=== PATIENT | male | born 1955 | race Caucasian/White ===

== ENCOUNTER 2018-09-03 16:05 | Inpatient (IN) | payer MEDICARE ==
[2018-09-03] MEDS ORDERED: Zosyn 3.375GM/100 Ml D5W 3.375 GM/100 ML IVPB IV ONE (16:30)
[2018-09-03] MEDS ORDERED: Zofran 4 MG/2 ML VIAL IV PRN (16:30)
[2018-09-03] MEDS ORDERED: TYLENOL 325 MG PO PRN (16:31)
[2018-09-03 16:55] LABS: Lactic Acid 1.9 (0.4-2.0)
[2018-09-03] MEDS ORDERED: THIAMINE 200 MG/2 ML IV ONE (17:05)
[2018-09-03] MEDS: Lactated Ringers 1,000 ML IV SCH ×4 (17:06→22:38)
--- NOTE | 2018-09-03 17:15 | XRAY ---
Indication: Pneumonia. Low oxygenation. Comparison: None Portable chest demonstrates right upper lung and lesser degree right base pneumonic infiltrates without consolidation or large effusion. Remaining heart and and left lung unremarkable. Bony thorax intact with mild degenerative changes.
[2018-09-03 17:32] LABS: BASOPHIL % 0.1 % (0.0-0.4); Basophil (Absolute #) 0.02 (0-0.4); Eosinophil % 0.1 % (0.00-5.0); Eosinophil (Absolute #) 0.01 (0-0.5); Granulocyte Absolute (ANC) 15.77 (1.4-6.9); Granulocytes % 82.5 % (36.0-66.0); Hemoglobin 14.9 gm/dl (12.5-18.0); Lymphocyte (Absolute #) 1.52 (1.0-4.6); Mean Cell Volume 98.3 fl (78-100); Mean Corpuscular Hemoglobin 32.5 pg (26-32); Mean Corpuscular Hgb Concent. 33.1 g/dl (32-36); Mean Platelet Volume 9.7 fl (6-9.5); Monocyte (Absolute #) 1.77 (0.0-1.3); Monocytes % 9.3 % (0.0-12.0); Platelet Count 191 K/mm3 (150-450); Red Blood Count 4.58 M/mm3 (4.1-5.6); Red Cell Distribution Width 16.4 % (11.5-14.0); White Blood Count 19.1 K/mm3 (4.0-10.5)
[2018-09-03] MEDS: Nicoderm CQ 21 MG TOP SCH (17:45)
--- NOTE | 2018-09-03 17:46 | PCM.HP ---
History of Present Illness - Chief Complaint Chief Complaint: pneumonia Date: 09/03/18 History of Present Illness: is a 62 year old male. who lives at home and is a heavy smoker starting at age 6. he has had increased productive cough for the last week and this am awoke very weak with right sided chest pains that hurt when he coughs or takes a deep breath and sharp in nature and productive sputum and short of breath not relieved with his inhaler. He was confused and fell twice at home. He refused to go to the ED and came into the office for an acute appointment today with his and daughter. He had to come in a wheelchair and his oxygen saturation on arrival was 70% in obvious distress. This improved with O2 supplementation nc at 6L and ekg showed no evidence of acute ischemia. He had right sided rales and rhonchi and felt febrile. He was sent for direct icu admission after refusal of ems transfer and ED care. He is a heavy drinker but has been drinking less for the last few days due to not feeling as well. He has jerking of his extremities that is worsening chronically and much worse today. - Review of Systems Constitutional: Fever, Chills, Fatigue Eyes: No Symptoms Ears, Nose, & Throat: No Symptoms, Nose Congestion Respiratory: Cough, Short Of Breath, Wheezing Cardiac: Chest Pain, No Edema, No Syncope Abdominal/Gastrointestinal: Nausea, No Abdominal Pain, No Vomiting, No Diarrhea Genitourinary Symptoms: No Dysuria Musculoskeletal: No Back Pain, No Neck Pain Skin: No Rash Neurological: No Dizziness, No Focal Weakness, No Sensory Changes Psychological: No Symptoms Endocrine: No Symptoms Hematologic/Lymphatic: No Symptoms Immunological/Allergic: No Symptoms Additional Findings: Meds: Proair prn; spirivia daily; dulera bid; flexaril 10 mg tid prn; bumetanide 2mg daily; propranolol 40 mg tid for tremor; potassium chloride 10 mEq po tid; Clonazepam 1mg daily; atorvastatin 10 mg daily All: NKDA Medications & Allergies Home Medications: Home Medication List Albuterol Sulfate [Proair Hfa] 2 puff IH Q4HPRN PRN 09/03/18 [History Confirmed 09/03/18] Atorvastatin Calcium [Lipitor] 10 mg PO LUNCH 09/03/18 [History Confirmed ] Bumetanide [Bumex] 2 mg PO LUNCH 09/03/18 [History Confirmed 09/03/18] Clonazepam [Klonopin] 1 mg PO TIDPRN PRN 09/03/18 [History Confirmed 09/03/18] Cyclobenzaprine HCl 10 mg [Cyclobenzaprine 10 MG] 10 mg PO TIDPRN [History Confirmed 09/03/18] Mometasone/Formoterol [Dulera 200 Mcg/5 Mcg Inhaler] 1 puff IH BID 09/03/18 [ History Confirmed 09/03/18] Potassium Chloride 10 Meq Tab* [Klor Con 10 MEQ] 30 meq PO DAILY 09/03/18 [ History Confirmed 09/03/18] Propranolol HCl 40 mg PO TID 09/03/18 [History Confirmed 09/03/18] Tiotropium [place] [Spiriva] 18 mcg IH DAILY 09/03/18 [History Confirmed ] Allergies/Adverse Reactions: Allergies Allergy/AdvReac Type Severity Reaction Status Date / Time No Known Drug Allergies Allergy Unverified 09/03/18 18:02 - Past Medical History Past Medical History: Yes Neurological History: No Pertinent History ENT History: No Pertinent History Cardiac History: High Cholesterol, Hypertension Respiratory History: COPD Endocrine Medical History: No Pertinent History Musculoskelatal History: Degenerative Disk Disease GI Medical History: GERD History: No Pertinent History Pyscho-Social History: No Pertinent History Male Reproductive Disorders: No Pertinent History - Past Surgical History Past Surgical History: Yes Neuro Surgical History: No Pertinent History Cardiac History: No Pertinent History Respiratory Surgery: No Pertinent History GI Surgical History: No Pertinent History Genitourinary Surgical Hx: No Pertinent History Musculskeletal Surgical Hx: Other Male Surgical History: No Pertinent History Other Surgical History: cysts removed. back surgery - Social History Alcohol: Occasionally Drug Use: none - Physical Exam Vital Signs: BP 98/56; HR 120; RR 30 pulse ox 70% on room air improved to 96% on 6L nc O2 General Appearance: moderate distress, alert Neurologic Exam: alert, oriented x 3, cooperative, normal mood/affect, sensation nml, other (myoclonic jerking of the amrs and legs), No motor deficits Eye Exam: PERRL/EOMI, eyes nml inspection, No scleral icterus, No pale conjunctivae Ears, Nose, Throat Exam: pharynx normal, dry mucous membranes Neck Exam: normal inspection, non-tender, supple, full range of motion Respiratory Exam: respiratory distress, prolonged expirations, crackles/rales ( right sided throughout), rhonchi Cardiovascular Exam: normal heart sounds, normal peripheral pulses, tachycardia , No edema Gastrointestinal/Abdomen Exam: soft, normal bowel sounds, No tenderness, No mass Back Exam: normal inspection, normal range of motion, No CVA tenderness, No vertebral tenderness Extremity Exam: normal inspection, normal range of motion, pelvis stable Skin Exam: normal color, warm, dry, No rash Lymphatic Exam: No adenopathy Results - Labs Lab/Micro Results: Lab Results-Last 24 Hours 09/03/18 09/03/18 Range/Units 16:30 16:45 WBC 19.1 H (4.0-10.5) K/mm3 RBC 4.58 (4.1-5.6) M/mm3 Hgb 14.9 (12.5-18.0) gm/dl Hct 45.0 (42-50) % MCV 98.3 (78-100) fl MCH 32.5 H (26-32) pg MCHC 33.1 (32-36) g/dl RDW 16.4 H (11.5-14.0) % Plt Count 191 (150-450) K/mm3 MPV 9.7 H (6-9.5) fl Gran % 82.5 H (36.0-66.0) % Eos # (Auto) 0.01 (0-0.5) Absolute Lymphs (auto) 1.52 (1.0-4.6) Absolute Monos (auto) 1.77 H (0.0-1.3) Lymphocytes % 8.0 L (24.0-44.0) % Monocytes % 9.3 (0.0-12.0) % Eosinophils % 0.1 (0.00-5.0) % Basophils % 0.1 (0.0-0.4) % Absolute Granulocytes 15.77 H (1.4-6.9) Basophils # 0.02 (0-0.4) Lactic Acid 1.9 (0.4-2.0) - Radiology Impressions Radiology Exams & Impressions: Radiology Procedures Category Date Time Status CHEST 1 VIEW (PORTABLE) Stat Exams 09/03/18 16:47 Completed - Other Procedures and Tests Respiratory Therapy 09/03/18 17:31 Oxygen NASAL CANNULA 4 lpm Assessment/Plan (1) Pneumonia Current Visit: Yes Status: Acute Qualifiers: Laterality: right Lung location: upper lobe of lung Assessment & Plan: with sepsis will treat with zosyn he has history of heavy alcohol use will start ciwa protocol with ativan prn 2 L bolus of LR then 125 mL/h blood cultures sputum culture pending with his copd and sepsis with pneumonia will use hydrocortisone 50 mg iv q6h and due duoneb prn currently no real wheezing more right sided rales and rhonchi reassessment after 1 L of LR shows improved blood pressure more alert joking improving peripheral perfusion Code(s): J18.9 - PNEUMONIA, UNSPECIFIED ORGANISM (2) Sepsis Current Visit: Yes Status: Acute (3) COPD (chronic obstructive pulmonary disease) Current Visit: Yes Status: Chronic (4) Tobacco abuse Current Visit: Yes Status: Chronic Code(s): Z72.0 - TOBACCO USE (5) Alcohol consumption heavy Current Visit: Yes Status: Chronic Code(s): Z78.9 - OTHER SPECIFIED HEALTH STATUS (6) Hypomagnesemia Current Visit: Yes Status: Acute Code(s): E83.42 - HYPOMAGNESEMIA
[2018-09-03 17:56] LABS: Appearance CLEAR (CLEAR); Bilirubin NEGATIVE (NEGATIVE); Blood NEGATIVE Ery/ul (0-5); Glucose NEGATIVE (NEGATIVE); Ketones TRACE (NEGATIVE); Leukocyte Esterase NEGATIVE (NEGATIVE); Nitrite NEGATIVE (NEGATIVE); Protein,Urine Dip NEGATIVE (Negative); Specific Gravity 1.015 (1.005-1.025); Urobilinogen NEGATIVE mg/dL (0-1)
[2018-09-03 17:56] LABS: ALBUMIN 3.8 g/dL (3.5-5.0); ALKALINE PHOSPHATASE 76 U/L (38-126); ANION GAP 11.3 MEQ/L (5-15); BLOOD UREA NITROGEN 18 mg/dL (9-20); CHLORIDE 103 mmol/L (98-107); Calcium 8.9 mg/dL (8.4-10.2); Carbon Dioxide 26 mmol/L (22-30); Creatinine 1 1.08 mg/dL (0.66-1.25); Glucose 98 mg/dL (74-106); NT PRO BNP 810 pg/mL (0-900); Potassium 3.6 mmol/L (3.5-5.1); SGOT/AST 21 U/L (17-59); SGPT/ALT 16 U/L (0-50); SODIUM 137 mmol/L (137-145); Total Protein 6.6 g/dL (6.3-8.2)
[2018-09-03] MEDS: solu-CORTEF 100MG IV SCH ×2 (18:08→23:37)
[2018-09-03] MEDS: Ativan 2 MG/1 ML VIAL IV PRN ×2 (18:20→21:48)
[2018-09-03] MEDS ORDERED: Ecotrin 325 MG PO ONE (18:25)
[2018-09-03] MEDS ORDERED: MORPHINE SULFATE 2 MG INJ IV PRN (18:25)
[2018-09-03] MEDS ORDERED: Klonopin 0.5 MG PO PRN (19:15)
[2018-09-03] MEDS: Magnesium 1 Gm / 100 Ml D5W*** 100 ML IV SCH ×2 (19:16→19:47)
[2018-09-03] MEDS ORDERED: LEVOPHED 4 MG/4 ML 4,000 MCG in Dextrose 5%/Water IV Soln. 500 ML 500 ML IV PRN (20:10)
[2018-09-03] MEDS: DUONEB 0.5-3 MG/3 ml Neb IH PRN (21:18)
[2018-09-03] MEDS: Pepcid 20 MG VIAL IV SCH (21:48)
[2018-09-03] MEDS: Zocor 10MG PO SCH (21:48)
[2018-09-03] MEDS: MAG-OX 400 PO SCH (21:48)
[2018-09-03] MEDS ORDERED: solu-CORTEF 250MG ONE (22:57)
[2018-09-03] MEDS: Zosyn 3.375GM/100 Ml D5W 3.375 GM/100 ML IVPB IV SCH (23:37)
[2018-09-04] MEDS: Zosyn 3.375GM/100 Ml D5W 3.375 GM/100 ML IVPB IV SCH ×5 (01:39→23:31)
[2018-09-04 05:31] LABS: Slide Review 1 YES
[2018-09-04 06:08] LABS: ALBUMIN 3.4 g/dL (3.5-5.0); ALKALINE PHOSPHATASE 63 U/L (38-126); ANION GAP 9.2 MEQ/L (5-15); BLOOD UREA NITROGEN 14 mg/dL (9-20); CHLORIDE 105 mmol/L (98-107); Calcium 8.9 mg/dL (8.4-10.2); Carbon Dioxide 32 mmol/L (22-30); Creatinine 1 0.85 mg/dL (0.66-1.25); Glucose 149 mg/dL (74-106); Potassium 4.2 mmol/L (3.5-5.1); SGOT/AST 16 U/L (17-59); SGPT/ALT 13 U/L (0-50); SODIUM 142 mmol/L (137-145); Total Protein 6.3 g/dL (6.3-8.2)
[2018-09-04] MEDS ORDERED: solu-CORTEF 100MG ONE (06:20)
[2018-09-04] MEDS: solu-CORTEF 100MG IV SCH ×4 (06:23→23:28)
[2018-09-04] MEDS ORDERED: Ventolin Hfa MDI IH PRN (07:08)
[2018-09-04] MEDS ORDERED: PROVENTIL COMMON CANISTER IH PRN (07:12)
[2018-09-04] MEDS: DUONEB 0.5-3 MG/3 ml Neb IH PRN ×2 (07:28→18:37)
[2018-09-04] MEDS: Lactated Ringers 1,000 ML IV SCH ×5 (07:38→22:35)
--- NOTE | 2018-09-04 08:25 | PCM.NOTE ---
Date and Time: 09/04/18815 Subjective Assessment: productive persistent coughing but otherwise feeling much better no appetite but no nausea feeling much better some right sided sharp chest pains still has not tried to stand up yet. Objective Exam General Appearance: no apparent distress, alert Neurologic Exam: alert, oriented x 3, cooperative, normal mood/affect, nml cerebellar function, sensation nml, No motor deficits Skin Exam: normal color, warm, dry Eye Exam: PERRL, EOMI, eyes nml inspection Ears, Nose, Throat Exam: normal ENT inspection, pharynx normal, moist mucous membranes Neck Exam: normal inspection, non-tender, supple, full range of motion Respiratory Exam: crackles/rales, rhonchi, wheezing, other (rales much worse on the right expiratory wheezing and rhonchi throughout) Cardiovascular Exam: regular rate/rhythm, normal heart sounds Gastrointestinal/Abdomen Exam: soft, No tenderness, No mass Extremity Exam: normal inspection, normal range of motion Back Exam: normal inspection, normal range of motion, No CVA tenderness, No vertebral tenderness Male Genitalia Exam: deferred Rectal Exam: deferred OBJECTIVE DATA Vital Signs: Vital Signs - 24 hr Temp Pulse Resp BP Pulse Ox 09/04/18 07:55 98.1 F 89 19 131/75 95 09/04/18 07:30 85 22 95 09/04/18 07:00 91 H 22 144/73 93 L 09/04/18 06:00 80 28 H 122/63 95 09/04/18 05:00 80 26 H 134/96 96 09/04/18 04:00 98.7 F 83 28 H 131/74 93 L 09/04/18 03:00 83 25 H 122/68 95 09/04/18 02:00 79 26 H 132/75 94 L 09/04/18 01:00 85 25 H 94/76 93 L 09/04/18 00:01 102 H 09/04/18 00:00 98.9 F 101 H 25 H 125/65 97 09/03/18 23:00 101 H 25 H 143/73 97 09/03/18 21:56 102 H 23 113/58 98 09/03/18 21:29 115 H 18 96 09/03/18 21:00 99.5 F 111 H 27 H 106/53 94 L 09/03/18 20:13 114 H 23 97 09/03/18 20:00 107 H 23 09/03/18 19:54 100.5 F 110 H 25 H 75/59 94 L 09/03/18 17:01 100.9 F 115 H 20 113/68 99 Oxygen-Last 24 hours O2 Percentage 3 Liters = 32% O2 Percentage 3 Liters = 32% O2 Percentage 3 Liters = 32% O2 Percentage 3 Liters = 32% O2 Percentage 3 Liters = 32% O2 Percentage 3 Liters = 32% O2 Percentage 3 Liters = 32% O2 Percentage 3 Liters = 32% O2 Percentage 3 Liters = 32% O2 Percentage 3 Liters = 32% O2 Percentage 3 Liters = 32% O2 Percentage 3 Liters = 32% O2 Percentage 3 Liters = 32% O2 Percentage 4 Liters = 36% Oxygen Flowrate (L/min)-RT 3 Oxygen Flowrate (L/min)-RT 3 Oxygen Flowrate (L/min)-RT 4 Pain Assessment - Last Documented Pain Intensity 4 Pain Scale Used 0-10 Pain Scale Intake and Output: Intake & Output 09/01/18 09/02/18 09/03/18 09/04/18 11:59 11:59 11:59 11:59 Intake Total 4347 Output Total 1625 Balance 2722 Weight 103.7 kg Lab Results: Lab Results-Last 24 Hours 09/03/18 09/03/18 09/03/18 Range/Units 16:30 16:30 16:45 WBC 19.1 H (4.0-10.5) K/mm3 RBC 4.58 (4.1-5.6) M/mm3 Hgb 14.9 (12.5-18.0) gm/dl Hct 45.0 (42-50) % MCV 98.3 (78-100) fl MCH 32.5 H (26-32) pg MCHC 33.1 (32-36) g/dl RDW 16.4 H (11.5-14.0) % Plt Count 191 (150-450) K/mm3 MPV 9.7 H (6-9.5) fl Gran % 82.5 H (36.0-66.0) % Eos # (Auto) 0.01 (0-0.5) Absolute Lymphs (auto) 1.52 (1.0-4.6) Absolute Monos (auto) 1.77 H (0.0-1.3) Lymphocytes % 8.0 L (24.0-44.0) % Monocytes % 9.3 (0.0-12.0) % Eosinophils % 0.1 (0.00-5.0) % Basophils % 0.1 (0.0-0.4) % Absolute Granulocytes 15.77 H (1.4-6.9) Basophils # 0.02 (0-0.4) Sodium 137 (137-145) mmol/L Potassium 3.6 (3.5-5.1) mmol/L Chloride 103 (98-107) mmol/L Carbon Dioxide 26 (22-30) mmol/L Anion Gap 11.3 (5-15) MEQ/L BUN 18 (9-20) mg/dL Creatinine 1.08 (0.66-1.25) mg/dL Estimated GFR > 60.0 ML/MIN Glucose 98 (74-106) mg/dL Lactic Acid 1.9 (0.4-2.0) Calcium 8.9 (8.4-10.2) mg/dL Magnesium (1.6-2.3) mg/dL Total Bilirubin 0.80 (0.2-1.3) mg/dL AST 21 (17-59) U/L ALT 16 (0-50) U/L Alkaline Phosphatase 76 (38-126) U/L NT-Pro-B Natriuret Pep 810 (0-900) pg/mL Serum Total Protein 6.6 (6.3-8.2) g/dL Albumin 3.8 (3.5-5.0) g/dL Urine Color (YELLOW) Urine Appearance (CLEAR) Urine pH (5-6) Ur Specific [place] (1.005-1.025) Urine Protein (Negative) Urine Ketones (NEGATIVE) Urine Blood (0-5) Jorge/ul Urine Nitrite (NEGATIVE) Urine Bilirubin (NEGATIVE) Urine Urobilinogen (0-1) mg/dL Ur Leukocyte Esterase (NEGATIVE) Urine WBC (Auto) (0-5) /HPF Urine RBC (Auto) (0-2) /HPF U Epithel Cells (Auto) (FEW) /HPF Urine Bacteria (Auto) (NEGATIVE) /HPF Urine Mucus (Auto) (NEGATIVE) /HPF Urine Culture Reflexed (NO) Urine Glucose (NEGATIVE) mg/dL Slides for Path Review YES 09/03/18 09/03/18 09/04/18 Range/Units 17:20 17:45 05:34 WBC (4.0-10.5) K/mm3 RBC (4.1-5.6) M/mm3 Hgb (12.5-18.0) gm/dl Hct (42-50) % MCV (78-100) fl MCH (26-32) pg MCHC (32-36) g/dl RDW (11.5-14.0) % Plt Count (150-450) K/mm3 MPV (6-9.5) fl Gran % (36.0-66.0) % Eos # (Auto) (0-0.5) Absolute Lymphs (auto) (1.0-4.6) Absolute Monos (auto) (0.0-1.3) Lymphocytes % (24.0-44.0) % Monocytes % (0.0-12.0) % Eosinophils % (0.00-5.0) % Basophils % (0.0-0.4) % Absolute Granulocytes (1.4-6.9) Basophils # (0-0.4) Sodium 142 (137-145) mmol/L Potassium 4.2 (3.5-5.1) mmol/L Chloride 105 (98-107) mmol/L Carbon Dioxide 32 H (22-30) mmol/L Anion Gap 9.2 (5-15) MEQ/L BUN 14 (9-20) mg/dL Creatinine 0.85 (0.66-1.25) mg/dL Estimated GFR > 60.0 ML/MIN Glucose 149 H (74-106) mg/dL Lactic Acid (0.4-2.0) Calcium 8.9 (8.4-10.2) mg/dL Magnesium 1.1 L 1.9 (1.6-2.3) mg/dL Total Bilirubin 1.10 (0.2-1.3) mg/dL AST 16 L (17-59) U/L ALT 13 (0-50) U/L Alkaline Phosphatase 63 (38-126) U/L NT-Pro-B Natriuret Pep (0-900) pg/mL Serum Total Protein 6.3 (6.3-8.2) g/dL Albumin 3.4 L (3.5-5.0) g/dL Urine Color YELLOW (YELLOW) Urine Appearance CLEAR (CLEAR) Urine pH 5.0 (5-6) Ur Specific [place] 1.015 (1.005-1.025) Urine Protein NEGATIVE (Negative) Urine Ketones TRACE (NEGATIVE) Urine Blood NEGATIVE (0-5) Jorge/ul Urine Nitrite NEGATIVE (NEGATIVE) Urine Bilirubin NEGATIVE (NEGATIVE) Urine Urobilinogen NEGATIVE (0-1) mg/dL Ur Leukocyte Esterase NEGATIVE (NEGATIVE) Urine WBC (Auto) 3-5 (0-5) /HPF Urine RBC (Auto) NONE (0-2) /HPF U Epithel Cells (Auto) NONE (FEW) /HPF Urine Bacteria (Auto) NONE (NEGATIVE) /HPF Urine Mucus (Auto) SLIGHT (NEGATIVE) /HPF Urine Culture Reflexed NO (NO) Urine Glucose NEGATIVE (NEGATIVE) mg/dL Slides for Path Review Radiology Exams: Radiology Procedures Category Date Time Status CHEST 1 VIEW (PORTABLE) Stat Exams 09/03/18 16:47 Completed Assessment/Plan (1) Pneumonia Current Visit: Yes Status: Acute Qualifiers: Laterality: right Lung location: upper lobe of lung Assessment & Plan: He was given 30 mg/kg bolus LR for total of 3L on the third L his bp was still low with MAP <60 and he was started on levophed 5mcg/min and improved he has been weaned off and just taken off the levophed at this time feeling a little better copious coughing continue zosyn duonebs hydrocortisone 50 mg iv q 6h for the sepsis and copd on flutter valve as well O2 decreased to 3L nc O2 IF tolerates well off the gtt will decrease iv fluids and transfer to med surg floor lovenox for ppx and pepcid bid as well Code(s): J18.9 - PNEUMONIA, UNSPECIFIED ORGANISM (2) Sepsis Current Visit: Yes Status: Acute (3) COPD (chronic obstructive pulmonary disease) Current Visit: Yes Status: Chronic (4) Tobacco abuse Current Visit: Yes Status: Chronic Code(s): Z72.0 - TOBACCO USE (5) Alcohol consumption heavy Current Visit: Yes Status: Chronic Code(s): Z78.9 - OTHER SPECIFIED HEALTH STATUS (6) Hypomagnesemia Current Visit: Yes Status: Acute Code(s): E83.42 - HYPOMAGNESEMIA
[2018-09-04] MEDS: MAG-OX 400 PO SCH ×2 (10:11→21:07)
[2018-09-04] MEDS: THERAGRAN MULTIVITAMIN PO SCH (10:11)
[2018-09-04] MEDS: FOLATE 1 MG PO SCH (10:11)
[2018-09-04] MEDS: Pepcid 20 MG VIAL IV SCH ×2 (10:11→21:07)
[2018-09-04] MEDS: ENOXAPARIN SODIUM SQ SCH (10:20)
[2018-09-04] MEDS ORDERED: NON-FORMULARY ITEM (Atorvastatin Calcium 10 MG) PO SCH (12:00)
[2018-09-04] MEDS: Nicoderm CQ 21 MG TOP SCH (17:59)
[2018-09-04] MEDS: Zocor 10MG PO SCH (21:07)
[2018-09-05] MEDS: Lactated Ringers 1,000 ML IV SCH ×3 (03:38→21:24)
[2018-09-05] MEDS: solu-CORTEF 100MG IV SCH ×4 (05:28→23:41)
[2018-09-05] MEDS: Zosyn 3.375GM/100 Ml D5W 3.375 GM/100 ML IVPB IV SCH ×4 (05:35→23:44)
[2018-09-05 05:43] LABS: BASOPHIL % 0.1 % (0.0-0.4); Basophil (Absolute #) 0.01 (0-0.4); Eosinophil (Absolute #) 0 (0-0.5); Granulocyte Absolute (ANC) 15.89 (1.4-6.9); Granulocytes % 87.3 % (36.0-66.0); Hemoglobin 13.9 gm/dl (12.5-18.0); Lymphocyte (Absolute #) 1.33 (1.0-4.6); Lymphocytes % 7.3 % (24.0-44.0); Mean Cell Volume 99.3 fl (78-100); Mean Corpuscular Hemoglobin 32.1 pg (26-32); Mean Corpuscular Hgb Concent. 32.3 g/dl (32-36); Mean Platelet Volume 10.1 fl (6-9.5); Monocyte (Absolute #) 0.97 (0.0-1.3); Monocytes % 5.3 % (0.0-12.0); Platelet Count 192 K/mm3 (150-450); Red Blood Count 4.33 M/mm3 (4.1-5.6); Red Cell Distribution Width 16.7 % (11.5-14.0); White Blood Count 18.2 K/mm3 (4.0-10.5)
[2018-09-05 05:45] LABS: ANION GAP 10.9 MEQ/L (5-15); BLOOD UREA NITROGEN 12 mg/dL (9-20); CHLORIDE 102 mmol/L (98-107); Calcium 8.7 mg/dL (8.4-10.2); Carbon Dioxide 29 mmol/L (22-30); Creatinine 1 0.86 mg/dL (0.66-1.25); Glucose 113 mg/dL (74-106); Potassium 3.4 mmol/L (3.5-5.1); SODIUM 139 mmol/L (137-145)
[2018-09-05] MEDS: FOLATE 1 MG PO SCH (09:39)
[2018-09-05] MEDS: Pepcid 20 MG VIAL IV SCH ×2 (09:40→21:18)
[2018-09-05] MEDS: MAG-OX 400 PO SCH ×2 (09:40→21:18)
[2018-09-05] MEDS: THERAGRAN MULTIVITAMIN PO SCH (09:40)
[2018-09-05] MEDS: ENOXAPARIN SODIUM SQ SCH (09:40)
--- NOTE | 2018-09-05 09:56 | PCM.NOTE ---
Date and Time: 09/05/18953 Subjective Assessment: patient is still having cough, mostly nonproductive. states he is feeling less short of breath. is not on oxygen therapy at home at baseline Objective Exam General Appearance: no apparent distress, alert, obese Neurologic Exam: alert, oriented x 3, cooperative, normal mood/affect, nml cerebellar function, sensation nml, No motor deficits Skin Exam: normal color, warm, dry Respiratory Exam: rhonchi, wheezing Cardiovascular Exam: regular rate/rhythm, normal heart sounds Gastrointestinal/Abdomen Exam: soft, No tenderness, No mass Extremity Exam: normal inspection, normal range of motion OBJECTIVE DATA Vital Signs: Vital Signs - 24 hr Temp Pulse Resp BP Pulse Ox 09/05/18 09:40 88 18 96 09/05/18 08:00 97.9 F 98 H 19 146/77 96 09/05/18 04:00 98.2 F 94 H 17 133/78 97 09/05/18 00:00 97.5 F 94 H 18 124/77 96 09/04/18 20:00 98.5 F 100 H 19 116/67 94 L 09/04/18 18:37 103 H 18 94 L 09/04/18 16:00 98.5 F 95 H 20 123/73 96 09/04/18 12:00 98.7 F 95 H 19 128/73 95 Oxygen-Last 24 hours O2 Percentage 3 Liters = 32% O2 Percentage 3 Liters = 32% O2 Percentage 3 Liters = 32% O2 Percentage 3 Liters = 32% O2 Percentage 3 Liters = 32% O2 Percentage 3 Liters = 32% Oxygen Flowrate (L/min)-RT 3 Oxygen Flowrate (L/min)-RT 3 Pain Assessment - Last Documented Pain Intensity 0 Pain Scale Used 0-10 Pain Scale Intake and Output: Intake & Output 09/02/18 09/03/18 09/04/18 09/05/18 11:59 11:59 11:59 11:59 Intake Total 4347 2507 Output Total 8215 9925 Balance 2722 332 Weight 103.7 kg 105.3 kg Lab Results: Lab Results-Last 24 Hours 09/05/18 09/05/18 Range/Units 05:10 05:10 WBC 18.2 H (4.0-10.5) K/mm3 RBC 4.33 (4.1-5.6) M/mm3 Hgb 13.9 (12.5-18.0) gm/dl Hct 43.0 (42-50) % MCV 99.3 (78-100) fl MCH 32.1 H (26-32) pg MCHC 32.3 (32-36) g/dl RDW 16.7 H (11.5-14.0) % Plt Count 192 (150-450) K/mm3 MPV 10.1 H (6-9.5) fl Gran % 87.3 H (36.0-66.0) % Eos # (Auto) 0 (0-0.5) Absolute Lymphs (auto) 1.33 (1.0-4.6) Absolute Monos (auto) 0.97 (0.0-1.3) Lymphocytes % 7.3 L (24.0-44.0) % Monocytes % 5.3 (0.0-12.0) % Eosinophils % 0.0 (0.00-5.0) % Basophils % 0.1 (0.0-0.4) % Absolute Granulocytes 15.89 H (1.4-6.9) Basophils # 0.01 (0-0.4) Sodium 139 (137-145) mmol/L Potassium 3.4 L (3.5-5.1) mmol/L Chloride 102 (98-107) mmol/L Carbon Dioxide 29 (22-30) mmol/L Anion Gap 10.9 (5-15) MEQ/L BUN 12 (9-20) mg/dL Creatinine 0.86 (0.66-1.25) mg/dL Estimated GFR > 60.0 ML/MIN Glucose 113 H (74-106) mg/dL Calcium 8.7 (8.4-10.2) mg/dL Magnesium 2.0 (1.6-2.3) mg/dL Radiology Exams: Radiology Procedures Category Date Time Status CHEST 1 VIEW (PORTABLE) Stat Exams 09/03/18 16:47 Completed Multi-Disciplinary Progress Notes: Multi-Disciplinary Progress Notes 09/04/18 15:01 Case Management Note by Collette Concepcion DISCHARGE PLAN REVIEWED WITH PATIENT AND THEN CALLED LAY CAREGIVER, KAMALA SWARTZ , AT [phone]. PT NORMALLY LIVES AT HOME WITH HIS OF 41 YEARS. PT DOES HAVE A CANE AT HOME, THAT HE USES PRN. PLAN IS TO RETURN HOME TO PREEPISODIC LEVEL OF FUNCTION. AT THIS TIME, HE DENIES THE NEED FOR ANY OTHER DME/SERVICE AT HOME. PATIENT STATES THAT HE IS OPEN TO WHAT HIS DOCTOR ADVISES HIM TO DO, AND IF HE NEEDS REHAB, HE WILL TALK WITH HIS FAMILY AND FAMILY DOCTOR ABOUT IT. HIS DAUGHTER BRINGS HIS GROCERIES AND TAKES HIM TO DOCTOR APPOINTMENTS. HE HAS [employer]ATE COVERAGE FOR MEDICATIONS. HIS COOKS AND TAKES CARE OF HIM AND HE HAS CHILDREN LIVING CLOSE. PLAN IS TO RETURN HOME TO PRE EPISODIC LEVEL OF FUNCTION. WILL CONTINUE TO MONITOR FOR ALL D/C NEEDS. IMPORTANT PAPERS FROM MEDICARE EXPLAINED, SIGNED, COPY GIVEN TO THE PATIENT, AND ORIGINALS PLACED IN THE CHART. Initialized on 09/04/18 15:01 - END OF NOTE Assessment/Plan (1) Pneumonia Current Visit: Yes Status: Acute Onset Date: ~09/03/18 Qualifiers: Laterality: right Lung location: upper lobe of lung Assessment & Plan: continue zosyn, nebs at this time Code(s): J18.9 - PNEUMONIA, UNSPECIFIED ORGANISM (2) Sepsis Current Visit: Yes Status: Acute Onset Date: ~09/03/18 (3) COPD (chronic obstructive pulmonary disease) Current Visit: Yes Status: Chronic Assessment & Plan: significant wheezing, continue zosyn, solu-cortef and nebulzier therapy. still on supplemental oxygen
[2018-09-05] MEDS: Nicoderm CQ 21 MG TOP SCH (17:57)
[2018-09-05] MEDS: Zocor 10MG PO SCH (21:18)
[2018-09-06] MEDS ORDERED: Haldol 5 MG ONE (01:24)
[2018-09-06] MEDS ORDERED: Haldol 5 MG IM ONE (01:27)
[2018-09-06] MEDS: Zosyn 3.375GM/100 Ml D5W 3.375 GM/100 ML IVPB IV SCH ×3 (05:30→17:13)
[2018-09-06] MEDS: solu-CORTEF 100MG IV SCH ×3 (05:36→17:14)
[2018-09-06 06:06] LABS: BASOPHIL % 0.1 % (0.0-0.4); Basophil (Absolute #) 0.01 (0-0.4); Eosinophil % 0.1 % (0.00-5.0); Eosinophil (Absolute #) 0.01 (0-0.5); Granulocyte Absolute (ANC) 9.47 (1.4-6.9); Granulocytes % 78.8 % (36.0-66.0); Hemoglobin 14.6 gm/dl (12.5-18.0); Lymphocyte (Absolute #) 1.62 (1.0-4.6); Lymphocytes % 13.5 % (24.0-44.0); Mean Cell Volume 99.3 fl (78-100); Mean Corpuscular Hemoglobin 32.2 pg (26-32); Mean Corpuscular Hgb Concent. 32.4 g/dl (32-36); Mean Platelet Volume 10.2 fl (6-9.5); Monocytes % 7.5 % (0.0-12.0); Platelet Count 199 K/mm3 (150-450); Red Blood Count 4.53 M/mm3 (4.1-5.6); Red Cell Distribution Width 16.3 % (11.5-14.0)
[2018-09-06 06:23] LABS: ALBUMIN 3.8 g/dL (3.5-5.0); ALKALINE PHOSPHATASE 71 U/L (38-126); ANION GAP 9.9 MEQ/L (5-15); BLOOD UREA NITROGEN 13 mg/dL (9-20); CHLORIDE 101 mmol/L (98-107); Calcium 8.7 mg/dL (8.4-10.2); Carbon Dioxide 33 mmol/L (22-30); Creatinine 1 0.78 mg/dL (0.66-1.25); Glucose 114 mg/dL (74-106); Potassium 3.3 mmol/L (3.5-5.1); SGOT/AST 52 U/L (17-59); SGPT/ALT 44 U/L (0-50); SODIUM 141 mmol/L (137-145); Total Protein 6.9 g/dL (6.3-8.2)
--- NOTE | 2018-09-06 08:30 | PCM.NOTE ---
Date and Time: 09/06/18828 Subjective Assessment: patient wants to go home today, still has some cough and is short of breath with exertion. requiring oxygen Objective Exam General Appearance: no apparent distress, alert Skin Exam: normal color, warm, dry Respiratory Exam: rhonchi, wheezing Cardiovascular Exam: regular rate/rhythm, normal heart sounds Gastrointestinal/Abdomen Exam: soft, No tenderness, No mass Extremity Exam: normal inspection, normal range of motion OBJECTIVE DATA Vital Signs: Vital Signs - 24 hr Temp Pulse Resp BP Pulse Ox 09/06/18 08:11 75 18 98 09/06/18 07:28 97.7 F 93 H 18 156/95 98 09/06/18 04:00 98.0 F 88 20 171/95 98 09/06/18 00:06 97 09/06/18 00:00 98.2 F 98 H 19 134/78 96 09/05/18 20:35 92 H 20 97 09/05/18 20:00 98.2 F 90 20 137/72 96 09/05/18 16:00 97.9 F 64 18 160/79 97 09/05/18 12:00 98.2 F 91 H 18 147/81 98 09/05/18 09:40 88 18 96 Oxygen-Last 24 hours O2 Percentage 3 Liters = 32% O2 Percentage 3 Liters = 32% O2 Percentage 3 Liters = 32% O2 Percentage 3 Liters = 32% Pain Assessment - Last Documented Pain Intensity 0 Pain Scale Used 0-10 Pain Scale Intake and Output: Intake & Output 09/03/18 09/04/18 09/05/18 09/06/18 11:59 11:59 11:59 11:59 Intake Total 4347 2507 1778 Output Total 1625 2175 650 Balance 2722 332 1128 Weight 103.7 kg 105.3 kg Lab Results: Lab Results-Last 24 Hours 09/06/18 09/06/18 Range/Units 05:15 05:15 WBC 12.0 H (4.0-10.5) K/mm3 RBC 4.53 (4.1-5.6) M/mm3 Hgb 14.6 (12.5-18.0) gm/dl Hct 45.0 (42-50) % MCV 99.3 (78-100) fl MCH 32.2 H (26-32) pg MCHC 32.4 (32-36) g/dl RDW 16.3 H (11.5-14.0) % Plt Count 199 (150-450) K/mm3 MPV 10.2 H (6-9.5) fl Gran % 78.8 H (36.0-66.0) % Eos # (Auto) 0.01 (0-0.5) Absolute Lymphs (auto) 1.62 (1.0-4.6) Absolute Monos (auto) 0.90 (0.0-1.3) Lymphocytes % 13.5 L (24.0-44.0) % Monocytes % 7.5 (0.0-12.0) % Eosinophils % 0.1 (0.00-5.0) % Basophils % 0.1 (0.0-0.4) % Absolute Granulocytes 9.47 H (1.4-6.9) Basophils # 0.01 (0-0.4) Sodium 141 (137-145) mmol/L Potassium 3.3 L (3.5-5.1) mmol/L Chloride 101 (98-107) mmol/L Carbon Dioxide 33 H (22-30) mmol/L Anion Gap 9.9 (5-15) MEQ/L BUN 13 (9-20) mg/dL Creatinine 0.78 (0.66-1.25) mg/dL Estimated GFR > 60.0 ML/MIN Glucose 114 H (74-106) mg/dL Calcium 8.7 (8.4-10.2) mg/dL Total Bilirubin 0.80 (0.2-1.3) mg/dL AST 52 (17-59) U/L ALT 44 (0-50) U/L Alkaline Phosphatase 71 (38-126) U/L Serum Total Protein 6.9 (6.3-8.2) g/dL Albumin 3.8 (3.5-5.0) g/dL Assessment/Plan (1) Pneumonia Current Visit: Yes Status: Acute Onset Date: ~09/03/18 Qualifiers: Laterality: right Lung location: upper lobe of lung Assessment & Plan: continue zosyn, clinically improving. Code(s): J18.9 - PNEUMONIA, UNSPECIFIED ORGANISM (2) Sepsis Current Visit: Yes Status: Acute Onset Date: ~09/03/18 (3) COPD (chronic obstructive pulmonary disease) Current Visit: Yes Status: Chronic Assessment & Plan: continue zosyn, nebs and solu cortef. patient was not on oxygen prior to admission. may require home oxygen on discharge, will continue to wean as tolerated but he is showing improvement.
[2018-09-06] MEDS: ENOXAPARIN SODIUM SQ SCH (10:56)
[2018-09-06] MEDS: FOLATE 1 MG PO SCH (10:56)
[2018-09-06] MEDS: Pepcid 20 MG VIAL IV SCH ×2 (10:56→21:45)
[2018-09-06] MEDS: MAG-OX 400 PO SCH ×2 (10:56→21:45)
[2018-09-06] MEDS: THERAGRAN MULTIVITAMIN PO SCH (10:56)
[2018-09-06] MEDS: Nicoderm CQ 21 MG TOP SCH (17:13)
[2018-09-06] MEDS: Zocor 10MG PO SCH (21:46)
[2018-09-07] MEDS: Zosyn 3.375GM/100 Ml D5W 3.375 GM/100 ML IVPB IV SCH ×3 (00:15→11:36)
[2018-09-07] MEDS: solu-CORTEF 100MG IV SCH ×2 (00:16→05:39)
[2018-09-07 05:55] LABS: BASOPHIL % 0.1 % (0.0-0.4); Basophil (Absolute #) 0.01 (0-0.4); Eosinophil % 0.3 % (0.00-5.0); Eosinophil (Absolute #) 0.03 (0-0.5); Granulocyte Absolute (ANC) 6.83 (1.4-6.9); Granulocytes % 69.5 % (36.0-66.0); Hemoglobin 14.6 gm/dl (12.5-18.0); Lymphocyte (Absolute #) 1.95 (1.0-4.6); Lymphocytes % 19.8 % (24.0-44.0); Mean Cell Volume 98.5 fl (78-100); Mean Corpuscular Hemoglobin 31.9 pg (26-32); Mean Corpuscular Hgb Concent. 32.4 g/dl (32-36); Monocyte (Absolute #) 1.01 (0.0-1.3); Monocytes % 10.3 % (0.0-12.0); Platelet Count 217 K/mm3 (150-450); Red Blood Count 4.57 M/mm3 (4.1-5.6); Red Cell Distribution Width 15.9 % (11.5-14.0); White Blood Count 9.8 K/mm3 (4.0-10.5)
[2018-09-07 06:14] LABS: ANION GAP 10.3 MEQ/L (5-15); BLOOD UREA NITROGEN 10 mg/dL (9-20); CHLORIDE 99 mmol/L (98-107); Calcium 8.8 mg/dL (8.4-10.2); Carbon Dioxide 33 mmol/L (22-30); Creatinine 1 0.77 mg/dL (0.66-1.25); Glucose 104 mg/dL (74-106); Potassium 3.1 mmol/L (3.5-5.1); SODIUM 139 mmol/L (137-145)
[2018-09-07] MEDS: Lactated Ringers 1,000 ML IV SCH (07:35)
[2018-09-07 07:48] VITALS: O2SAT 96
[2018-09-07] MEDS ORDERED: Klor Con 10 MEQ PO ONE (08:43)
--- NOTE | 2018-09-07 08:48 | PCM.DCORD ---
- Discharge Discharge Date: 09/07/18 Disposition: Home, Self-Care Condition: Stable Prescriptions: New Levofloxacin [Levaquin] 500 mg PO DAILY #6 tablet OLANZapine [Zyprexa] 5 mg PO HS #30 tablet Continue Propranolol HCl 40 mg PO TID Albuterol Sulfate [Proair Hfa] 2 puff IH Q4HPRN PRN PRN Reason: COPD Potassium Chloride 10 Meq Tab* [Klor Con 10 MEQ] 30 meq PO DAILY Bumetanide [Bumex] 2 mg PO LUNCH Mometasone/Formoterol [Dulera 200 Mcg/5 Mcg Inhaler] 1 puff IH BID Cyclobenzaprine HCl 10 mg [Cyclobenzaprine 10 MG] 10 mg PO TIDPRN Clonazepam [Klonopin] 1 mg PO TIDPRN PRN PRN Reason: Anxiety Atorvastatin Calcium [Lipitor] 10 mg PO LUNCH Tiotropium [place] [Spiriva] 18 mcg IH DAILY Follow up with: LEXIE SHAFFER [Primary Care Provider] - 09/14/18 11:00 am
[2018-09-07] MEDS: THERAGRAN MULTIVITAMIN PO SCH (09:16)
[2018-09-07] MEDS: FOLATE 1 MG PO SCH (09:17)
[2018-09-07] MEDS: MAG-OX 400 PO SCH (09:17)
[2018-09-07] MEDS: Pepcid 20 MG VIAL IV SCH (09:19)
[2018-09-07] MEDS: ENOXAPARIN SODIUM SQ SCH (09:20)
[2018-09-07] MEDS ORDERED: Inderal 20 MG PO SCH (10:00)
--- NOTE | 2018-09-07 12:03 | PCM.DCORD ---
- Discharge Disposition: Home, Self-Care Condition: Stable Prescriptions: New Levofloxacin [Levaquin] 500 mg PO DAILY #6 tablet OLANZapine [Zyprexa] 5 mg PO HS #30 tablet Nicotine 21 mg [Nicoderm CQ 21 MG] 21 mg TOP Q24H #28 patch Continue Propranolol HCl 40 mg PO TID Albuterol Sulfate [Proair Hfa] 2 puff IH Q4HPRN PRN PRN Reason: COPD Potassium Chloride 10 Meq Tab* [Klor Con 10 MEQ] 30 meq PO DAILY Bumetanide [Bumex] 2 mg PO LUNCH Mometasone/Formoterol [Dulera 200 Mcg/5 Mcg Inhaler] 1 puff IH BID Cyclobenzaprine HCl 10 mg [Cyclobenzaprine 10 MG] 10 mg PO TIDPRN Clonazepam [Klonopin] 1 mg PO TIDPRN PRN PRN Reason: Anxiety Atorvastatin Calcium [Lipitor] 10 mg PO LUNCH Tiotropium [place] [Spiriva] 18 mcg IH DAILY Follow up with: LEXIE SHAFFER [Primary Care Provider] - 09/14/18 11:00 am
[2018-09-07] MEDS ORDERED: zyPREXA 5MG TABLET PO ONE (12:16)
[2018-09-07 13:18] VITALS: BP 139/84; PULSE 73
--- NOTE | 2018-09-07 21:00 | PCM.DS ---
Discharge Summary Date of Admission: 09/03/18 16:13 Date of Discharge: 09/07/18 Admitting Physician: LEXIE SHAFFER Primary Care Provider: LEXIE SHAFFER Allergies Allergies No Known Drug Allergies Allergy (Unverified 09/03/18 18:02) Hospital Summary - Hospital Course Hospital Course: He presented to the clinic with worsening cough and acute onset hallucinations with weakness falling and confusion. he was found to be hypoxic and in distress. he improved with oxygen at 6L nc O2. his ekg showed sinus tachycardia and he was admitted to the ICU where he was treated with a 3L (30 mL/kg) bolus of LR and his bp started to drift down with the bolus and required levophed gtt to maintain map >65. He was started on zosyn after labs blood cultures were drawn on arrival to icu. His magnesium was 1.1 and was replaced po and iv and this improved his myoclonic jerking. His oxygenation was improved on 4L nc O2 and weaned to 2L at time of discharge. He was treated with hydrocortisone 50 iv q6h for his sepsis and duonebs for his copd. He did develop intermittent visual hallucinations followed by periods of normal mentation. He was fully oriented. on 09/05 and 09/06 his hallucinations at night where much worse and he was paranoid about the nursing staff requiring the police to be called at one point as he was refusing treatment and swinging his call light overhead. This improved after 5mg of haldol. On initial evaluation on 09/07 he was doing well and understood he was having periods when he would see things that were obviously not real but looked very real to him. He then had new hallucinations seeing blocks and other items outside his room on 09/07 in the am. He was given 5mg of po zyprexa and tolerated this well and was having no further hallucinations. He agreed for his daughter to remove all the firearms from his home which she did prior to his discharge. His and his daughter will be helping him after discharge. The hallucinations are likely multifactorial from delirium due to the sepsis, sleep deprivation, steroids, and his hx of alcohol abuse. he has no other symptoms of alcohol withdrawal at this time and his walking is much improved. the sputum cultures showed sensitivity to levaquin and he will complete antibiotic coarse with this. He will need f/u chest xray in 1 month to check for resolution of abnormal chest xray pneumonia. - Vitals & Intake/Output Vital Signs: Vital Signs Temperature 97.8 F 09/07/18 12:00 Pulse Rate 73 09/07/18 12:00 Respiratory Rate 18 09/07/18 12:00 Blood Pressure 139/84 09/07/18 12:00 O2 Sat by Pulse Oximetry 96 09/07/18 12:00 Oxygen-Last Documented O2 Percentage 2 Liters = 28% Intake & Output: Intake & Output 09/05/18 09/06/18 09/07/18 09/08/18 11:59 11:59 11:59 11:59 Intake Total 2507 1778 1558 Output Total 2179 109 2625 Balance 332 1128 -1067 Weight 105.3 kg - Lab Result Diagrams: 09/07/18 05:02 09/07/18 05:02 Lab Results-Last 24 Hrs: Lab Results-Last 24 Hours 09/07/18 09/07/18 Range/Units 05:02 05:02 WBC 9.8 (4.0-10.5) K/mm3 RBC 4.57 (4.1-5.6) M/mm3 Hgb 14.6 (12.5-18.0) gm/dl Hct 45.0 (42-50) % MCV 98.5 (78-100) fl MCH 31.9 (26-32) pg MCHC 32.4 (32-36) g/dl RDW 15.9 H (11.5-14.0) % Plt Count 217 (150-450) K/mm3 MPV 10.0 H (6-9.5) fl Gran % 69.5 H (36.0-66.0) % Eos # (Auto) 0.03 (0-0.5) Absolute Lymphs (auto) 1.95 (1.0-4.6) Absolute Monos (auto) 1.01 (0.0-1.3) Lymphocytes % 19.8 L (24.0-44.0) % Monocytes % 10.3 (0.0-12.0) % Eosinophils % 0.3 (0.00-5.0) % Basophils % 0.1 (0.0-0.4) % Absolute Granulocytes 6.83 (1.4-6.9) Basophils # 0.01 (0-0.4) Sodium 139 (137-145) mmol/L Potassium 3.1 L (3.5-5.1) mmol/L Chloride 99 (98-107) mmol/L Carbon Dioxide 33 H (22-30) mmol/L Anion Gap 10.3 (5-15) MEQ/L BUN 10 (9-20) mg/dL Creatinine 0.77 (0.66-1.25) mg/dL Estimated GFR > 60.0 ML/MIN Glucose 104 (74-106) mg/dL Calcium 8.8 (8.4-10.2) mg/dL Micro Results-Entire Visit: Microbiology 09/03/18 Unknown Gram Stain - Final Sputum - Expectorant Sputum Culture - Preliminary Pseudomonas Aeruginosa Streptococcus Pneumoniae 09/03/18 17:20 Blood Culture - Preliminary Blood NO GROWTH TO DATE - Procedures and Test Procedures and Tests throughout Hospitalization: Therapy Orders & Screens 09/03/18 17:31 Oxygen NASAL CANNULA 4 lpm Comment: Diagnosis: pneumonia 09/03/18 18:00 OT Screen per Nursing Assess Comment: Protocol Order Physician Instructions: Greater than 3 points order OT Admission Screening Reason For Exam: Triggered on Admission Diagnosis: pneumonia Open Wound/Cellutlitis/Pressure Ulcers: No Acute Fx/ORIF/Change in wt bearing status: Yes Severe MUSCULOSKELETAL pain: No ADL Dysfunction: Yes Acute CVA w/Hemiparesis/Hemiplegia: No Decreased Functional Mobility/Strength: No Sprain/Strain: No Acute Post-op Mobility Dysfunction: No Total Points: 8 PT Screen per Nursing Assess ONCE Comment: Protocol Order Physician Instructions: Greater than 3 points order PT Admission Screenin Reason For Exam: Triggered on Admission Diagnosis: pneumonia Open Wound/Cellutlitis/Pressure Ulcers: No Acute Fx/ORIF/Change in wt bearing status: Yes Severe MUSCULOSKELETAL pain: No ADL Dysfunction: Yes Acute CVA w/Hemiparesis/Hemiplegia: No Decreased Functional Mobility/Strength: No Sprain/Strain: No Acute Post-op Mobility Dysfunction: No Total Points: 8 Smoking Cessation Education ONCE Comment: Diagnosis: pneumonia Smoking Status: Current every day smoker How long have you smoked: 56 Have you smoked in the past 12 months: Yes Do you dip or chew tobacco: Yes 09/03/18 20:11 Respiratory Therapy Assessment DAILY Comment: Diagnosis: pneumonia 09/03/18 21:29 Flutter Therapy UD Comment: Diagnosis: pneumonia 09/04/18 07:29 Peak Expiratory Flow Rate ONCE Comment: Reason For Exam: Diagnosis: pneumonia 09/07/18 09:07 Qualify for Home Oxygen TODAY Comment: Diagnosis: pneumonia Discharge Exam General Appearance: no apparent distress, alert Neurologic Exam: alert, oriented x 3, cooperative, normal mood/affect, nml cerebellar function, sensation nml, No motor deficits Skin Exam: normal color, warm, dry Eye Exam: PERRL, EOMI, eyes nml inspection Ears, Nose, Throat Exam: normal ENT inspection, pharynx normal, moist mucous membranes Neck Exam: normal inspection, non-tender, supple, full range of motion Respiratory Exam: normal breath sounds, crackles/rales (right base), No rhonchi , No wheezing Cardiovascular Exam: regular rate/rhythm, normal heart sounds Gastrointestinal/Abdomen Exam: soft, No tenderness, No mass Extremity Exam: normal inspection, normal range of motion Back Exam: normal inspection, normal range of motion, No CVA tenderness, No vertebral tenderness Male Genitalia Exam: deferred Rectal Exam: deferred Final Diagnosis/Problem List - Final Discharge Diagnosis/Problem (1) Pneumonia Status: Acute Onset Date: ~09/03/18 (2) Sepsis Status: Acute Onset Date: ~09/03/18 (3) COPD (chronic obstructive pulmonary disease) Status: Chronic (4) Tobacco abuse Status: Chronic (5) Alcohol consumption heavy Status: Chronic (6) Hypomagnesemia Status: Resolved Onset Date: ~09/03/18 (7) Hypokalemia Status: Acute (8) Metabolic encephalopathy Status: Acute (9) Hallucination Status: Acute (10) Acute respiratory failure Status: Acute (11) Chronic respiratory failure with hypoxia Status: Acute (12) Streptococcus pneumoniae pneumonia Status: Acute (13) Pseudomonal pneumonia Status: Acute - Discharge Disposition: Home, Self-Care Condition: Stable Prescriptions: New Levofloxacin [Levaquin] 500 mg PO DAILY #6 tablet OLANZapine [Zyprexa] 5 mg PO HS #30 tablet Nicotine 21 mg [Nicoderm CQ 21 MG] 21 mg TOP Q24H #28 patch Continue Propranolol HCl 40 mg PO TID Albuterol Sulfate [Proair Hfa] 2 puff IH Q4HPRN PRN PRN Reason: COPD Potassium Chloride 10 Meq Tab* [Klor Con 10 MEQ] 30 meq PO DAILY Bumetanide [Bumex] 2 mg PO LUNCH Mometasone/Formoterol [Dulera 200 Mcg/5 Mcg Inhaler] 1 puff IH BID Cyclobenzaprine HCl 10 mg [Cyclobenzaprine 10 MG] 10 mg PO TIDPRN Clonazepam [Klonopin] 1 mg PO TIDPRN PRN PRN Reason: Anxiety Atorvastatin Calcium [Lipitor] 10 mg PO LUNCH Tiotropium [place] [Spiriva] 18 mcg IH DAILY Instructions: Pneumonia, Adult (DC), Oxygen Therapy, Adult (DC), Exacerbation of COPD (DC) Follow up with: LEXIE SHAFFER [Primary Care Provider] - 09/14/18 11:00 am
== END 2018-09-07 14:02 | disposition home or self-care (01) | DRG 193 ==
LOC: ICU 16:13 → MED SURG 09-04 17:00
PROVIDERS: ADMIT Family Medicine; ATTEND Family Medicine
DX: J18.9 Pneumonia, unspecified organism (principal); A41.9 Sepsis, unspecified organism; G93.41 Metabolic encephalopathy; J96.00 Acute respiratory failure, unspecified whether with hypoxia or hypercapnia; R44.3 Hallucinations, unspecified; J96.11 Chronic respiratory failure with hypoxia; J44.9 Chronic obstructive pulmonary disease, unspecified; E83.42 Hypomagnesemia; I10 Essential (primary) hypertension; E87.6 Hypokalemia; J13 Pneumonia due to Streptococcus pneumoniae; J15.1 Pneumonia due to Pseudomonas; Z72.0 Tobacco use; F10.10 Alcohol abuse, uncomplicated; K21.9 Gastro-esophageal reflux disease without esophagitis; Z79.899 Other long term (current) drug therapy; Z78.9 Other specified health status; E78.00 Pure hypercholesterolemia, unspecified
CPT/HCPCS: 36415; 71045; 80048; 80053; 81001; 83605; 83735; 83880; 85025; 87040; 87070; 87077; 87186; 94150; 94640; 94667; 94760; J1630; J1650; J1720; J2060; J2543; J3475; A9270-GY

== ENCOUNTER 2022-12-30 12:06 | Emergency (ER) | payer MEDICARE ==
--- NOTE | 2022-12-30 12:12 | ERPHSYRPT ---
- History of Present Illness Time Seen by Provider: 12/30/22 12:12 Historian: patient Exam Limitations: no limitations Physician History: This is a 66-year-old white male patient who was sent to us from [facility] because of right upper quadrant dull pain, jaundice, low blood pressure, mild tachycardia. Patient has had "gallbladder attacks" in the past. He has not smoked cigarettes in 5 years. He stopped drinking alcohol several years ago. He still has his gallbladder in place. Patient has a history of COPD, hyperlipidemia and hypertension. In the last 4 to 5 days he has had worsening right upper quadrant abdominal pain. Patient is sent to us for evaluation of his pain and his current condition. He does not have chest pain. He is not short of breath. He has had no nausea vomiting or diarrhea per his report. Timing/Duration: day(s), worse Quality: sharpness, stabbing Abdominal Pain Onset Location: RUQ Pain Radiation: no radiation Severity of Pain-Max: moderate Severity of Pain-Current: moderate Modifying Factors: Improves With: nothing Associated Symptoms: denies symptoms Previous symptoms: same symptoms as today Allergies/Adverse Reactions: No Known Drug Allergies Allergy (Verified 12/30/22 12:17) Home Medications: Albuterol Sulfate [Proair Hfa] 2 puff IH Q4HPRN PRN 09/03/18 [History] Atorvastatin Calcium [Lipitor] 10 mg PO LUNCH 09/03/18 [History] Bumetanide [Bumex] 2 mg PO LUNCH 09/03/18 [History] Cyclobenzaprine HCl 10 mg [Cyclobenzaprine 10 MG] 10 mg PO TIDPRN 09/03/18 [History] Mometasone/Formoterol [Dulera 200 Mcg-5 Mcg Inhaler] 1 puff IH BID 09/03/18 [History] Potassium Chloride Tab* [Klor Con] 30 meq PO DAILY 09/03/18 [History] Propranolol HCl 40 mg PO TID 09/03/18 [History] Tiotropium [place] [Spiriva [place]] 18 mcg IH DAILY 09/03/18 [History] Travel Risk - International Travel Have you traveled outside of the country in past 3 weeks: No - Coronavirus Screening Are you exhibiting any of the following symptoms?: No Close contact with a COVID-19 positive Pt in past 14-21 Days: No - Review of Systems Constitutional: No Symptoms Eyes: No Symptoms Ears, Nose, & Throat: No Symptoms Respiratory: No Symptoms Cardiac: No Symptoms Abdominal/Gastrointestinal: Abdominal Pain (Right upper quadrant) Genitourinary Symptoms: No Symptoms Musculoskeletal: No Symptoms Skin: No Symptoms Neurological: No Symptoms Psychological: No Symptoms Endocrine: No Symptoms Hematologic/Lymphatic: No Symptoms Immunological/Allergic: No Symptoms All Other Systems: Reviewed and Negative - Past Medical History Pertinent Past Medical History: Yes Neurological History: No Pertinent History ENT History: No Pertinent History Cardiac History: High Cholesterol, Hypertension Respiratory History: COPD Endocrine Medical History: No Pertinent History Musculoskeletal History: Degenerative Disk Disease GI Medical History: GERD History: No Pertinent History Psycho-Social History: No Pertinent History Male Reproductive Disorders: No Pertinent History - Past Surgical History Past Surgical History: Yes Neuro Surgical History: No Pertinent History Cardiac: No Pertinent History Respiratory: No Pertinent History Gastrointestinal: No Pertinent History Genitourinary: No Pertinent History Musculoskeletal: Other Male Surgical History: No Pertinent History Other Surgical History: cysts removed. back surgery - Social History Smoking Status: Current every day smoker How long have you smoked: 56 Exposure to second hand smoke: Yes Drug Use: none - Nursing Vital Signs Nursing Vital Signs: Initial Vital Signs Pulse Rate 80 12/30/22 12:18 Respiratory Rate 19 12/30/22 12:18 Blood Pressure 106/74 12/30/22 12:18 O2 Sat by Pulse Oximetry 100 12/30/22 12:18 Pain Scale Pain Intensity 7 - Physical Exam General Appearance: no apparent distress, alert, anxiety Eye Exam: PERRL/EOMI, scleral icterus (Mild) Ears, Nose, Throat Exam: normal ENT inspection, moist mucous membranes Neck Exam: normal inspection, non-tender, supple, full range of motion Respiratory Exam: normal breath sounds, lungs clear, airway intact, No chest tenderness, No respiratory distress Cardiovascular Exam: tachycardia (Mild) Gastrointestinal/Abdomen Exam: soft, normal bowel sounds, tenderness (Right upper quadrant), guarding (Right upper quadrant mild with palpation) Rectal Exam: not done Back Exam: normal inspection, normal range of motion, No CVA tenderness, No vertebral tenderness Extremity Exam: normal inspection, normal range of motion, pelvis stable Neurologic Exam: alert, oriented x 3, cooperative, equipment mechanic specialist II-XII nml as tested, normal mood/affect, nml cerebellar function, nml station & gait, sensation nml Skin Exam: jaundice Lymphatic Exam: No adenopathy SpO2 Interpretation: normal O2 Delivery: Room Air - Course Nursing assessment & vital signs reviewed: Yes EKG Interpreted by Me: RATE (78), Sinus Rhythm, Right [place] Deviation, NORMAL INTERVALS, NORMAL QRS, NORMAL ST-T, Other (This twelve-lead EKG was interpreted by me. No acute ischemic changes on today's twelve-lead EKG.) Ordered Tests: Active Orders 24 hr Category Date Time Status IV Insertion STAT Care 12/30/22 12:29 Active ABDOMEN AND PELVIS W/0 CONTRAS [CT] Stat Exams 12/30/22 12:29 Completed CHEST WITHOUT CONTRAST [CT] Stat Exams 12/30/22 13:35 Completed AMYLASE Stat Lab 12/30/22 12:50 Completed BLOOD CULTURE Stat Lab 12/30/22 12:50 Received CBC W DIFF Stat Lab 12/30/22 12:50 Completed CMP Stat Lab 12/30/22 12:50 Completed CULTURE,URINE Stat Lab 12/30/22 12:34 Received LIPASE Stat Lab 12/30/22 12:50 Completed Lactic Acid Stat Lab 12/30/22 12:49 Completed UA W/RFX UR CULTURE Stat Lab 12/30/22 12:34 Completed Medication Summary Generic Name Dose Route Start Last Admin Trade Name Freq PRN Reason Stop Dose Admin Ceftriaxone Sodium/Dextrose 1 g in 50 mls @ 100 mls/hr 12/30/22 14:05 12/30/22 14:18 Rocephin 1 Gm-D5w 50 Ml Bag IV 12/30/22 14:34 100 mls/hr STAT STA 100 mls/hr Administration Discontinued Medications Generic Name Dose Route Start Last Admin Trade Name Freq PRN Reason Stop Dose Admin Hydromorphone HCl 0.5 mg 12/30/22 14:06 12/30/22 14:17 Hydromorphone 1 Mg/1ml Inj 1 Mg/Ml Syringe IV 12/30/22 14:07 0.5 mg STAT ONE Administration Hydromorphone HCl Confirm 12/30/22 14:15 Hydromorphone 1 Mg/1ml Inj 1 Mg/Ml Syringe Administered 12/30/22 14:16 Dose 1 mg .ROUTE .STK-MED ONE Sodium Chloride 1,000 mls @ 999 mls/hr 12/30/22 12:29 12/30/22 14:00 Sodium Chloride 0.9% 1000 Ml IV 12/30/22 13:29 Infused .Q1H1M STA Infusion Sodium Chloride Confirm 12/30/22 12:34 Sodium Chloride 0.9% 1000 Ml Administered 12/30/22 12:35 Dose 1,000 mls @ ud .ROUTE .STK-MED ONE Ceftriaxone Sodium/Dextrose Confirm 12/30/22 14:15 Rocephin 1 Gm-D5w 50 Ml Bag Administered 12/30/22 14:16 Dose 1 g in 50 mls @ ud IV .STK-MED ONE Morphine Sulfate 2 mg 12/30/22 12:29 12/30/22 12:35 Morphine Sulfate 2 Mg/Ml Inj IV 12/30/22 12:30 2 mg STAT ONE Administration Morphine Sulfate Confirm 12/30/22 12:34 Morphine Sulfate 2 Mg/Ml Inj Administered 12/30/22 12:35 Dose 2 mg .ROUTE .STK-MED ONE Ondansetron HCl 4 mg 12/30/22 12:29 12/30/22 12:36 Ondansetron Hcl 4 Mg/2 Ml Vial IV 12/30/22 12:30 4 mg STAT ONE Administration Ondansetron HCl Confirm 12/30/22 12:34 Ondansetron Hcl 4 Mg/2 Ml Vial Administered 12/30/22 12:35 Dose 4 mg .ROUTE .STK-MED ONE Pantoprazole Sodium 40 mg 12/30/22 12:29 12/30/22 12:35 Pantoprazole 40 Mg Vial IV 12/30/22 12:30 40 mg STAT ONE Administration Pantoprazole Sodium Confirm 12/30/22 12:34 Pantoprazole 40 Mg Vial Administered 12/30/22 12:35 Dose 40 mg IV .STK-MED ONE Lab/Rad Data: Laboratory Result Diagrams 12/30/22 12:50 12/30/22 12:50 Laboratory Results 12/30/22 12/30/22 12/30/22 Range/Units 12:55 12:50 12:50 WBC 15.5 H (4.0-10.5) x10^3/uL RBC 4.05 L (4.1-5.6) x10^6/uL Hgb 12.5 (12.5-18.0) g/dL Hct 38.2 L (42-50) % MCV 94.3 (78-100) fL MCH 30.9 (26-32) pg MCHC 32.7 (32-36) g/dL RDW 14.4 H (11.5-14.0) % Plt Count 259 (150-450) x10^3/uL MPV 9.8 (7.5-11.0) fL Gran % 77.5 H (36.0-66.0) % Immature Gran % (Auto) 2.0 H (0.00-0.4) % Nucleat RBC Rel Count 0.0 (0.00-0.1) % Eos # (Auto) 0.13 (0-0.5) x10^3/uL Immature Gran # (Auto) 0.31 H (0.00-0.03) x10^3u/L Absolute Lymphs (auto) 1.45 (1.0-4.6) x10^3/uL Absolute Monos (auto) 1.51 H (0.0-1.3) x10^3/uL Absolute Nucleated RBC 0.00 (0.00-0.01) x10^3u/L Lymphocytes % 9.4 L (24.0-44.0) % Monocytes % 9.7 (0.0-12.0) % Eosinophils % 0.8 (0.00-5.0) % Basophils % 0.6 (0.0-0.4) % Absolute Granulocytes 11.99 H (1.4-6.9) x10^3/uL Basophils # 0.10 (0-0.4) x10^3/uL Sodium 138 (137-145) mmol/L Potassium 3.8 (3.5-5.1) mmol/L Chloride 102 (98-107) mmol/L Carbon Dioxide 27 (22-30) mmol/L Anion Gap 13.5 (5-15) MEQ/L BUN 21 H (9-20) mg/dL Creatinine 0.99 (0.66-1.25) mg/dL Estimated GFR > 60.0 ML/MIN Glucose 114 H (74-106) mg/dL Lactic Acid (0.4-2.0) Calcium 8.3 L (8.4-10.2) mg/dL Total Bilirubin 0.80 (0.2-1.3) mg/dL AST 84 H (17-59) U/L ALT 73 H (0-50) U/L Alkaline Phosphatase 273 H (38-126) U/L Serum Total Protein 7.1 (6.3-8.2) g/dL Albumin 3.5 (3.5-5.0) g/dL Amylase 55 (30-110) U/L Lipase 101 (23-300) U/L Urine Color (Yellow) Urine Appearance (Clear) Urine pH (4.6-8.0) Ur Specific Street (1.005-1.030) Urine Protein (Negative) Urine Glucose (UA) (Negative) mg/dL Urine Ketones (Negative) Urine Blood (Negative) Urine Nitrite (Negative) Urine Bilirubin (Negative) Urine Urobilinogen (0.2) mg/dL Ur Leukocyte Esterase (Negative) U Hyaline Cast (Auto) (0-2) /LPF Urine Microscopic RBC (0-5) /HPF Urine Microscopic WBC (0-5) /HPF Ur Epithelial Cells (None Seen) /HPF Urine Bacteria (None Seen) /HPF Urine Culture Reflexed (NO) Influenza Type A Ag NEGATIVE (NEGATIVE) Influenza Type B Ag NEGATIVE (NEGATIVE) RSV (PCR) NEGATIVE (NEGATIVE) SARS-CoV-2 (PCR) NEGATIVE (NEGATIVE) 12/30/22 12/30/22 Range/Units 12:49 12:34 WBC (4.0-10.5) x10^3/uL RBC (4.1-5.6) x10^6/uL Hgb (12.5-18.0) g/dL Hct (42-50) % MCV (78-100) fL MCH (26-32) pg MCHC (32-36) g/dL RDW (11.5-14.0) % Plt Count (150-450) x10^3/uL MPV (7.5-11.0) fL Gran % (36.0-66.0) % Immature Gran % (Auto) (0.00-0.4) % Nucleat RBC Rel Count (0.00-0.1) % Eos # (Auto) (0-0.5) x10^3/uL Immature Gran # (Auto) (0.00-0.03) x10^3u/L Absolute Lymphs (auto) (1.0-4.6) x10^3/uL Absolute Monos (auto) (0.0-1.3) x10^3/uL Absolute Nucleated RBC (0.00-0.01) x10^3u/L Lymphocytes % (24.0-44.0) % Monocytes % (0.0-12.0) % Eosinophils % (0.00-5.0) % Basophils % (0.0-0.4) % Absolute Granulocytes (1.4-6.9) x10^3/uL Basophils # (0-0.4) x10^3/uL Sodium (137-145) mmol/L Potassium (3.5-5.1) mmol/L Chloride (98-107) mmol/L Carbon Dioxide (22-30) mmol/L Anion Gap (5-15) MEQ/L BUN (9-20) mg/dL Creatinine (0.66-1.25) mg/dL Estimated GFR ML/MIN Glucose (74-106) mg/dL Lactic Acid 1.6 (0.4-2.0) Calcium (8.4-10.2) mg/dL Total Bilirubin (0.2-1.3) mg/dL AST (17-59) U/L ALT (0-50) U/L Alkaline Phosphatase (38-126) U/L Serum Total Protein (6.3-8.2) g/dL Albumin (3.5-5.0) g/dL Amylase (30-110) U/L Lipase (23-300) U/L Urine Color Yellow (Yellow) Urine Appearance Clear (Clear) Urine pH 6.0 (4.6-8.0) Ur Specific Street 1.020 (1.005-1.030) Urine Protein 30 (Negative) Urine Glucose (UA) Negative (Negative) mg/dL Urine Ketones Negative (Negative) Urine Blood NHT (Negative) Urine Nitrite Negative (Negative) Urine Bilirubin Negative (Negative) Urine Urobilinogen 1.0 A (0.2) mg/dL Ur Leukocyte Esterase Negative (Negative) U Hyaline Cast (Auto) 3-5 A (0-2) /LPF Urine Microscopic RBC 6-10 A (0-5) /HPF Urine Microscopic WBC 0-2 (0-5) /HPF Ur Epithelial Cells None Seen (None Seen) /HPF Urine Bacteria None Seen (None Seen) /HPF Urine Culture Reflexed YES (NO) Influenza Type A Ag (NEGATIVE) Influenza Type B Ag (NEGATIVE) RSV (PCR) (NEGATIVE) SARS-CoV-2 (PCR) (NEGATIVE) - Progress Progress: improved Progress Note: 12/30/22 13:36 CAT scan of the abdomen pelvis without contrast shows bilateral lower lobe lung airspace disease right side worse than left. There is gallbladder wall thick ening with a 1.2 cm gallstone present. There is hepatomegaly with diffuse metastasis. 12/30/22 14:18 This patient's medical issue is 1 of moderate complexity. The level of medical complexity and the work-up performed is based on review of the patient's past medical history, medication list, drug allergy list, history of present illness, and physical findings on examination. Work-up includes a CT scan of the abdomen and pelvis, intravenous line placement, intravenous normal saline infusion, CBC, CMP, amylase and lipase and CT scan of the abdomen pelvis. The results of these studies were reviewed by me and discussed with the patient and his daughter. There was evidence of lower lobe pneumonias on both sides and evidence of hepatomegaly with diffuse metastasis and therefore I ordered a CAT scan of the chest without contrast. That study shows a right middle lobe endobronchial nodularity/thickening with intraluminal narrowing and postobstructive atelectasis. Bronchoscopy is recommended. A superimposed pneumonia not completely excluded. There is minimal left lower lobe pneumonitis . The patient does have elevated liver enzymes, gallbladder wall thickening with a single 1.2 cm gallstone and leukocytosis. He does have evidence of pneumonia. We will treat his pneumonia and provide him a prescription for pain medicine/antitussive medication and attempt to make an arrangements to follow-up with his primary care provider to be referred to a orthotist or prosthetist. Counseled pt/family regarding: lab results, diagnosis, need for follow-up, rad results Medical Desision Making - Discussion of managment Reviewed:: Test results, Need for additional workup Agreed on:: Treatment plan, need for follow-up - Diagnostic Testing Diagnostic test were ordered, analyzed, and reviewed by me: Yes Radiological Interpretation: Reviewed by me - Risk of complications The pt has a mod risk of morbidity or mortality based on: Need for prescription drug management - Departure Departure Disposition: Home Clinical Impression: Pneumonia, Tracheal/bronchial disease, Chronic cholecystitis, Cholelithiasis, Elevated liver function tests Condition: Stable Critical Care Time: No Referrals: MYNOR ACEVEDO MD [Primary Care Provider] - Follow up/PCP as directed Additional Instructions: Drink plenty of clear liquids. Take your antibiotics as prescribed. Keep your appointment with Dr. Dumont at 1030 tomorrow morning at the [facility], 12/31/2022. Prescriptions: Hydrocodone/Acetaminophen [Hydrocodone-Acetamn 7.5-325/15] 10 ml PO Q8H PRN PRN #120 ml MDD 30 ml PRN Reason: Cough Azithromycin 250 mg [Zithromax 250 MG TABLET] 250 mg PO ZPACK #6 tablet
[2022-12-30] MEDS ORDERED: PROTONIX 40 MG IV IV ONE ×2 (12:29→12:34)
[2022-12-30] MEDS ORDERED: MORPHINE SULFATE 2 MG INJ IV ONE (12:29)
[2022-12-30] MEDS ORDERED: Sodium Chloride 0.9% 1000 ML 1,000 ML IV STA (12:29)
[2022-12-30] MEDS ORDERED: Zofran 4 MG/2 ML VIAL IV ONE (12:29)
[2022-12-30] MEDS ORDERED: Zofran 4 MG/2 ML VIAL ONE (12:34)
[2022-12-30] MEDS ORDERED: MORPHINE SULFATE 2 MG INJ ONE (12:34)
[2022-12-30] MEDS ORDERED: Sodium Chloride 0.9% 1000 ML 1,000 ML ONE (12:34)
[2022-12-30 13:12] LABS: ALBUMIN 3.5 g/dL (3.5-5.0); ALKALINE PHOSPHATASE 273 U/L (38-126); AMYLASE 55 U/L (30-110); ANION GAP 13.5 MEQ/L (5-15); BLOOD UREA NITROGEN 21 mg/dL (9-20); CHLORIDE 102 mmol/L (98-107); Calcium 8.3 mg/dL (8.4-10.2); Carbon Dioxide 27 mmol/L (22-30); Creatinine 1 0.99 mg/dL (0.66-1.25); EST GLOMERULAR FILTRATION RATE > 60.0 ML/MIN; Glucose 114 mg/dL (74-106); LIPASE 101 U/L (23-300); Potassium 3.8 mmol/L (3.5-5.1); SGOT/AST 84 U/L (17-59); SGPT/ALT 73 U/L (0-50); SODIUM 138 mmol/L (137-145); Total Protein 7.1 g/dL (6.3-8.2)
[2022-12-30 13:17] LABS: Appearance Clear (Clear); Bacteria None Seen /HPF (None Seen); Bilirubin Negative (Negative); Blood NHT (Negative); Epithelial Cells None Seen /HPF (None Seen); Glucose, Urine Negative (Negative); Ketones Negative (Negative); Leukocyte Esterase Negative (Negative); Nitrite Negative (Negative); Protein,Urine Dip 30 (Negative); WBC 0-2 /HPF (0-5)
[2022-12-30 13:21] LABS: Absolute Neutrophil Ct (ANC) 11.99 x10^3/uL (1.4-6.9); BASOPHIL % 0.6 % (0.0-0.4); Eosinophil % 0.8 % (0.00-5.0); Eosinophil (Absolute #) 0.13 x10^3/uL (0-0.5); Hematocrit 38.2 % (42-50); Hemoglobin 12.5 g/dL (12.5-18.0); IMMATURE GRAN # 0.31 x10^3u/L (0.00-0.03); Lymphocyte (Absolute #) 1.45 x10^3/uL (1.0-4.6); Lymphocytes % 9.4 % (24.0-44.0); Mean Cell Volume 94.3 fL (78-100); Mean Corpuscular Hemoglobin 30.9 pg (26-32); Mean Corpuscular Hgb Concent. 32.7 g/dL (32-36); Mean Platelet Volume 9.8 fL (7.5-11.0); Monocyte (Absolute #) 1.51 x10^3/uL (0.0-1.3); Monocytes % 9.7 % (0.0-12.0); Neutrophil % 77.5 % (36.0-66.0); Platelet Count 259 x10^3/uL (150-450); Red Blood Count 4.05 x10^6/uL (4.1-5.6); Red Cell Distribution Width 14.4 % (11.5-14.0); White Blood Count 15.5 x10^3/uL (4.0-10.5)
[2022-12-30 13:23] LABS: ADD URINE CULTURE? YES (NO)
--- NOTE | 2022-12-30 13:29 | XRAY ---
Indication: Right upper quadrant pain. Jaundice and lethargy. Multiple contiguous axial images obtained through the abdomen and pelvis without contrast. Comparison: None Lung bases demonstrating completely visualize right middle lobe and lingula consolidating/nonconsolidating airspace disease. Lesser minimal peripheral left lower lobe airspace disease. No effusion. Heart not enlarged with incidental tiny right infrahilar calcified nodes.. Small amount of gastroesophageal reflux noted. Noncontrasted stomach and bowel loops appear nonobstructed. Liver is enlarged measuring 20 cm and also demonstrates multiple hypodense lesions, largest right lobe worrisome for metastasis. Gallbladder demonstrates wall thickening and 1.2 cm stone. There are multiple nonobstructing bilateral renal micro-calculi. Also 4.6 cm right upper and 3 cm left mid renal cysts. Incidental splenic calcified granuloma. No free fluid/air. Remaining pancreas, spleen, adrenal glands, ureters, and bladder are unremarkable for noncontrast exam. Moderate scattered vascular calcifications with distal fusiform AAA measuring 4.4 x 4.1 cm. Osseous structures intact with minimal/mild degenerative changes throughout the thoracolumbar spine. No ventral or inguinal hernias. Impression: 1. Incompletely visualized right middle lobe and lingula consolidating/nonconsolidating airspace disease. Minimal left lower lobe airspace disease. 2. Hepatomegaly with diffuse metastasis. 3. Chronic findings including nonobstructing bilateral renal micro-calculi, bilateral renal cysts, GERD, arteriosclerotic disease with distal AAA, degenerative spondylosis, and old granulomatous disease.
[2022-12-30 14:05] LABS: INFLUENZA A NEGATIVE (NEGATIVE); INFLUENZA B NEGATIVE (NEGATIVE); RESPIRATORY SYNCTIAL VIRUS NEGATIVE (NEGATIVE); SARS-CoV-2 Xpert Express NEGATIVE (NEGATIVE)
[2022-12-30] MEDS ORDERED: ROCEPHIN 1 Gm-D5w 50 ml Bag** 1 G/50 ML IVPB IV STA (14:05)
[2022-12-30] MEDS ORDERED: Hydromorphone 1 mg/ml Injection IV ONE (14:06)
--- NOTE | 2022-12-30 14:13 | XRAY ---
Indication: Short of breath. COPD. Multiple contiguous axial images obtained through the chest without contrast. Comparison: None Right middle lobe bronchus demonstrates endobronchial nodularity/thickening with near-complete intraluminal narrowing. The right middle lobe demonstrates consolidating/nonconsolidating opacities with volume loss favoring postobstructive atelectasis with superimposed pneumonia not completely excluded. Subtle peripheral left lower lobe interstitial alveolar opacities favoring pneumonitis. Remaining aerated right middle lobe and lesser degree peripheral left lower lobe demonstrates scattered interstitial alveolar opacities. Lingula demonstrates subsegmental atelectasis/scarring. No effusion. Incidental small right lower lobe. Heart not enlarged with scattered coronary calcifications. Aorta is mildly arteriosclerotic without aneurysm. Tiny right hilar calcified nodes. No pathologic mediastinal lymphadenopathy. Bony thorax intact with mild degenerative changes throughout the spine. CT abdomen/pelvis reported separately. Impression: 1. Right middle lobe endobronchial nodularity/thickening with intraluminal narrowing and subsequent moderate postobstructive atelectasis. Bronchoscopy recommended. Superimposed pneumonia not completely excluded. 2. Minimal left lower lobe pneumonitis. 3. Incidental arteriosclerotic disease and old granulomatous disease.
[2022-12-30] MEDS ORDERED: ROCEPHIN 1 Gm-D5w 50 ml Bag** 1 G/50 ML IVPB IV ONE (14:15)
[2022-12-30] MEDS ORDERED: Hydromorphone 1 mg/ml Injection ONE (14:15)
[2022-12-30 14:30] VITALS: BP 107/65; PULSE 83; O2SAT 98
[2022-12-30 14:40] LABS: Slide Review 1 YES
== END 2022-12-30 14:54 | disposition home or self-care (01) ==
LOC: ED 12:06
DX: J18.9 Pneumonia, unspecified organism (principal); J98.09 Other diseases of bronchus, not elsewhere classified; K80.10 Calculus of gallbladder with chronic cholecystitis without obstruction; R79.89 Other specified abnormal findings of blood chemistry; R10.11 Right upper quadrant pain; R17 Unspecified jaundice; I95.9 Hypotension, unspecified; R00.0 Tachycardia, unspecified; I10 Essential (primary) hypertension; E78.5 Hyperlipidemia, unspecified; Z79.891 Long term (current) use of opiate analgesic; Z79.899 Other long term (current) drug therapy
CPT/HCPCS: 0241U; 36000; 36415; 71250; 74176; 80053; 81001; 82150; 83605; 83690; 85025; 87040; 87086; 96360; 96365; 96374; 96375; 96376; 99284; 87077; J0696; J1170; J2270; J2405